=== PATIENT | male | born 1990 | race African-American/Black ===

== ENCOUNTER 2017-05-20 04:58 | Inpatient (IN) | payer MEDICAID ==
[~2017-05-20] VITALS: Ht 188 cm; Wt 77.1 kg
[2017-05-20 06:09] LABS: Basophils # (auto) 0 uL; Basophils % (auto) 0.3 % (0.0-2.0); Eosinophils # (auto) 0.1 uL; Eosinophils % (auto) 1.9 % (0.0-7.0); Hemoglobin 16.2 g/dL (13.5-17.5); Lymphocytes # (auto) 1.6 uL; Lymphocytes % (auto) 24.1 % (10.0-50.0); Mean Corpuscular Hemoglobin 29.6 pg (28.0-32.0); Mean Corpuscular Hgb Conc. 33.7 g/dL (32.0-36.0); Mean Corpuscular Volume 87.9 fL (80.0-100.0); Mean Platelet Volume 8.4 fL (6.9-10.8); Monocytes # (auto) 0.4 uL; Neutrophils # (auto) 4.3 uL; Neutrophils % (auto) 67.7 % (37.0-80.0); Nucleated Red Blood Cells % 0.3 %; Platelet Count (auto) 164 10^3/uL (140-450); White Blood Cell 6.4 10^3/uL (4.4-10.8)
[2017-05-20 06:38] LABS: Albumin 4.6 g/dL (3.4-5.0); BUN/Creatinine Ratio 11.2; Bilirubin, Total 0.3 mg/dL (0.2-1.0); Calcium 9.1 mg/dL (8.5-10.1); Potassium 4.2 mmol/L (3.5-5.1); Total Protein 8.1 g/dL (6.4-8.2)
[2017-05-20] MEDS ORDERED: MIDAZOLAM HCL 1MG/1ML-2 ML VIAL ONE (07:22)
[2017-05-20] MEDS ORDERED: PHENYTOIN IV DILANTIN 1,000 MG in SODIUM CHL 0.9% 250 ML IV ONE (07:45)
[2017-05-20] MEDS ORDERED: LEVETIRACETAM INJ 500 MG in SODIUM CHL 0.9% 100 ML IV ONE (07:45)
[2017-05-20] MEDS ORDERED: MIDAZOLAM HCL 1MG/1ML-2 ML VIAL IV ONE (07:45)
[2017-05-20 07:48] LABS: Urine Bilirubin Negative (Negative); Urine Blood Negative /uL (Negative); Urine Color Yellow (Yellow); Urine Glucose Normal (Normal); Urine Ketone Negative (Negative); Urine Mucus FEW (None Seen); Urine Nitrite Negative (Negative); Urine RBC 1 /hpf (0 - 3); Urine Squamous Epithelial Cell FEW /hpf (<5); Urine Urobilinogen Normal (Negative); Urine pH 6.5 (5.0-8.0)
[2017-05-20] MEDS ORDERED: ONDANSETRON HCL 4 MG/2 ML VIAL ONE (08:33)
[2017-05-20] MEDS ORDERED: ONDANSETRON HCL 4 MG/2 ML VIAL IV ONE (08:45)
[2017-05-20] MEDS ORDERED: ONDANSETRON HCL 4 MG/2 ML VIAL IV PRN (09:45)
[2017-05-20] MEDS ORDERED: HYDROcodone-ACET 5/325MG TAB PO PRN (09:45)
[2017-05-20] MEDS ORDERED: MIDAZOLAM HCL 1MG/1ML-2 ML VIAL IV PRN (09:45)
[2017-05-20] MEDS ORDERED: ACETAMINOPHEN 500 MG TAB PO PRN (09:45)
[2017-05-20] MEDS ORDERED: PHENYTOIN SODIUM 100 MG CAP PO SCH (10:00)
[2017-05-20] MEDS ORDERED: LEVETIRACETAM 500 MG TAB PO SCH (10:00)
[2017-05-20] MEDS ORDERED: PHE100C PO (10:30)
[2017-05-20] MEDS ORDERED: LEVE250T18 PO ×2 (10:30)
[2017-05-20 14:58] VITALS: BP 103/68
== END 2017-05-20 16:07 | disposition left against medical advice (07) | DRG 53 ==
LOC: EDBD 04:58 → ER 05:03 → TELE 05:04
PROVIDERS: ADMIT Internal Medicine; ATTEND Internal Medicine
DX: G40.909 Epilepsy, unspecified, not intractable, without status epilepticus (principal); F17.210 Nicotine dependence, cigarettes, uncomplicated; Z53.21 Procedure and treatment not carried out due to patient leaving prior to being seen by health care provider; F12.10 Cannabis abuse, uncomplicated; Z59.0 Homelessness; Z83.3 Family history of diabetes mellitus
CPT/HCPCS: 36415; 70450; 80053; 80185; 80307; 81001; 82542; 85025; 94761; 96365; 96368; 96375; J2250; J2405

== ENCOUNTER 2018-06-16 15:55 | Emergency (ER) | payer MEDICAID ==
[~2018-06-16] VITALS: Ht 170.2 cm; Wt 63.5 kg
[~2018-06-16 15:55] MED LIST: LEVE250T18 PO; PHE100C PO
[2018-06-16 16:08] VITALS: BP 158/87
== END 2018-06-16 22:25 | disposition left against medical advice (07) ==
LOC: ER 15:55
DX: R56.9 Unspecified convulsions (principal); Z76.0 Encounter for issue of repeat prescription; Z53.21 Procedure and treatment not carried out due to patient leaving prior to being seen by health care provider